=== PATIENT | male | born 2000 | race Caucasian/White ===

== ENCOUNTER 2020-02-14 15:30 | Emergency (ER) | payer OTHER, SELFPAY ==
[2020-02-14 16:04] VITALS: BP 132/72; PULSE 67; RESP 16; TEMP 36.4; O2SAT 99; BMI 17.9
--- NOTE | 2020-02-14 16:08 | DI.RAD.S_ITS ---
PROCEDURE: XR FINGER LT MIN 2V INDICATIONS: laceration from grimaldo cutter TECHNIQUE: 2 views of the 4th finger(s) acquired. COMPARISON: None. FINDINGS: Bones: No fractures or dislocations. No suspicious bony lesions. Soft tissues: 4th finger soft tissue injury is seen. IMPRESSION: Soft tissue injury, without an associated bony abnormality identified. Dictated by: Sridhar Reyes M.D. on 02/14/2020 at 15:22 Approved by: Sridhar Reyes M.D. on 02/14/2020 at 15:23
[2020-02-14] MEDS: LIDO 1%/SOD BICARB 8.4% (10ML) 10 ML SYRINGE INJ (17:03)
[2020-02-14] MEDS: TET,DIPH,PERTUSS(ACELL),VAC/PF 0.5 ML SYRINGE IM (17:06)
--- NOTE | 2020-02-14 17:12 | ED.WOUNDLAC ---
HPI - Wound/Laceration <BENI Madrigal - Last Filed: 02/14/20 19:18> General Chief Complaint: Wound/Laceration Stated Complaint: left wrong finger wound from weed eater Time Seen by Provider: 02/14/20 15:38 Source: patient Mode of arrival: Ambulatory History of Present Illness HPI narrative: 19-year-old healthy male presents emergency department for a laceration of his left 4th finger from a ?grimaldo butter. Patient is unsure of last Tdap. Patient denies any other injuries, is able to move finger. Patient denies any fevers, chills, nausea, vomiting, diarrhea, hand injury, or any other concerns. Related Data Allergies Allergy/AdvReac Type Severity Reaction Status Date / Time No Known Drug Allergies Allergy Verified 02/14/20 16:07 Review of Systems <BENI Madrigal - Last Filed: 02/14/20 19:18> Review of Systems Narrative: REVIEW OF SYSTEMS: GENERAL: Denies fever or chills. HENT: Denies head trauma. EYE: Denies double vision or vision loss. CARDIOVASCULAR: Denies syncope. MUSCULOSKELETAL: Denies weakness, or deformities. INTEGUMENTARY: Complains of laceration L four finger, see HPI. NEURO: Denies numbness or tingling. Patient History <BENI Madrigal - Last Filed: 02/14/20 19:18> Medical History No significant medical problems (Acute) Social History Smoking Status: Never smoker Smoking Status: Never smoker Substance Use Type: does not use Exam <BENI Madrigal - Last Filed: 02/14/20 19:18> Initial Vital Signs Initial Vital Signs: Vital Signs Temperature 97.6 F 02/14/20 16:04 Pulse Rate 67 02/14/20 16:04 Respiratory Rate 16 02/14/20 16:04 Blood Pressure 132/72 02/14/20 16:04 Pulse Oximetry 99 02/14/20 16:04 PHYSICAL EXAMINATION: GENERAL: Well groomed, alert, and cooperative. Answers questions promptly and appropriately. Vital signs noted. HENT: Normocephalic, atraumatic. RESPIRATORY: Normal respiratory rate, trachea midline, airway patent. No stridor, nasal flaring or accessory muscle use. MUSCULOSKELETAL: Normal gait and coordination. Equal tone and mass bilaterally. EXTREMITIES: CMS intact. Moves all extremities. SKIN: Warm, dry, soft, appropriate color for ethnicity. A finger tip laceration to distal aspect of left 4th phalanges distal to the dip joint, approximately 1.5 cm involved small about of nail, an additional laceration approximately 1 cm in diameter in the same location involving a small amount of nail. Gab's Classification Type II. Multiple skin flaps noted to the tip of finger on the palmar side. Patient has full range of motion of dip and MIP joints against resistance. Intact sensation to distal phalanges. No other lacerations or injuries. Bleeding controlled with pressure. NEURO: Alert and Oriented X 3. Good coordination. PSYCH: Appropriate affect and mood. <Evelio Aceves MD - Last Filed: 02/15/20 15:28> Initial Vital Signs Initial Vital Signs: Vital Signs Temperature 97.6 F 02/14/20 16:04 Pulse Rate 67 02/14/20 16:04 Respiratory Rate 16 02/14/20 16:04 Blood Pressure 132/72 02/14/20 16:04 Pulse Oximetry 99 02/14/20 16:04 Procedures <BENI Madrigal - Last Filed: 02/14/20 19:18> Laceration Repair Laceration 1: Site: hand Side (If applicable): left Size (cm): 1.5 Description: flap and irregular Depth: simple, single layer Local Anesthetic: lidocaine 1% and bupivacaine 0.5% Amount of anesthesia used (mL): 4 Pre-repair: wound explored and irrigated extensively Skin layer closed with: dermabond Course <BENI Madrigal - Last Filed: 02/14/20 19:18> Course Course Narrative: Digital block was performed, Wound was irrigated extensively, wound was explored, no foreign bodies located. X-ray shows no bony involvement. Multiple lacerations and skin flaps noted to tip of finger without any suturable area. Dermabond was applied. Bleeding was controlled. Wound was wrapped. Patient was given a finger splint for further protection of nail bed. Orders Ordered: Discontinued Medications Bacitracin (Bacitracin) 1 applic TOP NOW ONE Stop: 02/14/20 16:34 Last Admin: 02/14/20 17:11 Dose: Not Given Documented by: REAL Diphtheria/Tetanus/Acell Pertussis (Adacel) 0.5 ml IM .ONCE ONE Stop: 02/14/20 16:41 Last Admin: 02/14/20 17:06 Dose: 0.5 ml Documented by: REAL Lidocaine/Sodium Bicarbonate (Buffered Lidocaine 10 Ml Syr) 10 ml INJ NOW ONE Stop: 02/14/20 16:34 Last Admin: 02/14/20 17:03 Dose: 10 ml Documented by: REAL Vital Signs Vital signs: Vital Signs - 8 hr 02/14/20 16:04 02/14/20 17:25 02/14/20 17:28 Temperature 97.6 F Pulse Rate 67 76 Respiratory Rate 16 16 Blood Pressure 132/72 Blood Pressure [Right Arm] 120/61 Pulse Oximetry 99 100 02/14/20 17:59 Temperature Pulse Rate 68 Respiratory Rate 20 Blood Pressure 120/61 Blood Pressure [Right Arm] Pulse Oximetry 100 <Evelio Aceves MD - Last Filed: 02/15/20 15:28> Orders Ordered: Discontinued Medications Bacitracin (Bacitracin) 1 applic TOP NOW ONE Stop: 02/14/20 16:34 Last Admin: 02/14/20 17:11 Dose: Not Given Documented by: REAL Diphtheria/Tetanus/Acell Pertussis (Adacel) 0.5 ml IM .ONCE ONE Stop: 02/14/20 16:41 Last Admin: 02/14/20 17:06 Dose: 0.5 ml Documented by: REAL Lidocaine/Sodium Bicarbonate (Buffered Lidocaine 10 Ml Syr) 10 ml INJ NOW ONE Stop: 02/14/20 16:34 Last Admin: 02/14/20 17:03 Dose: 10 ml Documented by: REAL Vital Signs Vital signs: Vital Signs - 8 hr 02/14/20 16:04 02/14/20 17:25 02/14/20 17:28 Temperature 97.6 F Pulse Rate 67 76 Respiratory Rate 16 16 Blood Pressure 132/72 Blood Pressure [Right Arm] 120/61 Pulse Oximetry 99 100 02/14/20 17:59 Temperature Pulse Rate 68 Respiratory Rate 20 Blood Pressure 120/61 Blood Pressure [Right Arm] Pulse Oximetry 100 MDM - Wound/Laceration <BENI Madrigal - Last Filed: 02/14/20 19:18> Medical Records Attestation: I reviewed the patient's medical records. Lab Data Attestation: I reviewed the patient's lab results. Imaging Data Extremity x-ray #1: Radiologist's Impression: [address] [address] XRay Report Signed Patient: Antione Burns TMR#: [id number] : 2000Acct:[id number] Age/Sex: 19 / MDate of Service: 02/14/20 Loc: ED Accession Number: [id number] Procedure: XR finger LT min 2V Ordering Provider: Camille Driver PROCEDURE: XR FINGER LT MIN 2V INDICATIONS: laceration from grimaldo cutter TECHNIQUE: 2 views of the 4th finger(s) acquired. COMPARISON: None. FINDINGS: Bones: No fractures or dislocations. No suspicious bony lesions. Soft tissues: 4th finger soft tissue injury is seen. IMPRESSION: Soft tissue injury, without an associated bony abnormality identified. Dictated by: Sridhar Reyes M.D. on 02/14/2020 at 15:22 Approved by: Sridhar Reyes M.D. on 02/14/2020 at 15:23 [facility] Narrative Medical decision making narrative: 19-year-old male presenting to the emergency department for maceration of his left 4th finger from a fur trimmer. Bleeding controlled with pressure, wound was extensively irrigated. No foreign bodies identified. Less likely bony involvement due to negative x-rays, very distal presentation of laceration, and no bony tenderness with palpation. Due to lacerated wound, there was no suturable areas of finger tip. Attempted to remove small part of nail which was still very attached, Small amount of glue was applied to control bleeding promote healing. Patient was counseled extensively about protecting the area especially when the nail falls off. Patient was counseled about signs of infection and to schedule follow-up with his primary care provider. Tdap was updated. Return precautions given, patient agrees to plan of care verbalized understanding. Discharge Plan Departure Patient Disposition: Home Clinical Impression: Laceration Discharge Date/Time: 02/14/20 18:00 Instructions: DI for Laceration Repair Activity Restrictions/Additional Instructions: Thank you for entrusting me with your care today. As discussed, x-rays are negative for foreign bodies or bony involvement such as fractures. I placed a small amount of glue on your finger to help with wound healing. This will start to peel off in a few days, do not pull off the glue. Do not place any bacitracin, Neosporin, or ointment to the area as this will dissolve the glue too quickly. The nail may fall off, please protect the tip of your finger when this happens. While there is low-risk for infection at this time, retained foreign bodies and infection are always possible with any cut or break in the skin. Please monitor the wound closely and be re-evaluated immediately if you develop any signs of infection such as pus, increasing redness, increasing pain, fevers, or any other concerns. Follow-up with your primary care provider in 1 week for re-evaluation.
[2020-02-14 17:25] VITALS: PULSE 76; RESP 16; O2SAT 100
[2020-02-14 17:28] VITALS: BP 120/61
[2020-02-14 17:59] VITALS: BP 120/61; PULSE 68; RESP 20; O2SAT 100
== END 2020-02-14 18:00 | disposition home or self-care (01) ==
PROVIDERS: Emergency Provider Nurse Practitioner
DX: S61.215A Laceration without foreign body of left ring finger without damage to nail, initial encounter (principal); W26.9XXA Contact with unspecified sharp object(s), initial encounter; Z23 Encounter for immunization
CPT/HCPCS: 73140; 90471; 99283; 99284; 90715